=== PATIENT | female | born 1980 | race Caucasian/White ===

== ENCOUNTER 2024-12-24 19:03 | Inpatient (IN) | payer MEDICARE, MEDICAID ==
[~2024-12-24] VITALS: Ht 167.6 cm; Wt 99.8 kg
[2024-12-24 20:09] LABS: BASOPHILS % (AUTO) 0.7 % (0.0-2.0); EOSINOPHILS % (AUTO) 0.2 % (1.0-6.0); HEMATOCRIT 39.8 % (36-46); HEMOGLOBIN 12.8 g/dL (12.0-16.0); LYMPHOCYTES # (AUTO) 1.5 K/uL (1.0-4.8); LYMPHOCYTES % (AUTO) 12.3 % (22.0-44.0); MEAN CORPUSCULAR HEMOGLOBIN 25.4 pg (26.0-34.0); MEAN CORPUSCULAR HGB CONC 32.1 G/dL (31.0-37.0); MEAN CORPUSCULAR VOLUME 79 fL (80-100); MONOCYTES # (AUTO) 0.7 K/uL (0.1-1.0); MONOCYTES % (AUTO) 5.7 % (2.0-9.0); NEUTROPHILS # (AUTO) 9.6 K/uL (1.8-7.7); NEUTROPHILS % (AUTO) 81.1 % (40.0-70.0); PLATELET COUNT (AUTO) 376 K/uL (150-450); RED BLOOD CELL COUNT(AUTO) 5.03 MIL/uL (4.00-5.20); RED CELL DISTRIBUTION WIDTH 15.3 % (11.5-14.5); WHITE BLOOD COUNT (AUTO) 11.9 K/uL (4.5-11.0)
[2024-12-24 20:19] LABS: ANION GAP 9 mmol/L (8-16); CARBON DIOXIDE 24 mmol/L (22-29); CHLORIDE 104 mmol/L (98-107); CREATININE 0.81 mg/dL (0.60-1.30); GLOMERULAR FILTR. RATE CALC > 60 mL/min (>60); GLUCOSE,RANDOM 100 mg/dL (70-110); POTASSIUM 3.7 mmol/L (3.5-5.1); SODIUM SERUM 137 mmol/L (136-145); UREA NITROGEN, BLOOD 13 mg/dL (7-18)
[2024-12-24 20:28] LABS: ALCOHOL, BLOOD (SERUM) < 3 mg/dL (0-10)
[2024-12-24] MEDS: ARIPiprazole 5 MG TABLET PO ONE (20:51)
[2024-12-24] MEDS: LORazepam 2 MG TABLET PO ONE (20:51)
[2024-12-24] MEDS: TOPIRAMATE 25 MG TABLET PO ONE (20:51)
[2024-12-24 21:43] LABS: APPEARANCE,URINE CLEAR (CLEAR); BILIRUBIN,URINE NEGATIVE (NEGATIVE); COLOR,URINE LIGHT YELLOW (YELLOW); GLUCOSE, URINE (UA) NEGATIVE (NEGATIVE); KETONES,URINE NEGATIVE (NEGATIVE); LEUKOCYTE ESTERASE ,URINE NEGATIVE (NEGATIVE); NITRATE,URINE NEGATIVE (NEGATIVE); OCCULT BLOOD,URINE TRACE (NEGATIVE); PH,URINE 5.5 (5.0-8.0); PH,URINE DRUG SCREEN 5.5 (5.0-8.0); PROTEIN,URINE NEGATIVE (NEGATIVE); SPECIFIC GRAVITIY, URINE 1.011 (1.003-1.030); UROBILINOGEN,URINE <=1.0 mg/dL (<=1.0)
[2024-12-24 21:54] LABS: ALCOHOL, URINE DRUG SCREEN NEGATIVE (NEGATIVE); AMPHET/METH SCREEN,URINE NEGATIVE (NEGATIVE); BARBITURATE SCREEN, URINE NEGATIVE (NEGATIVE); BENZODIAZEPINES SCREEN,URINE NEGATIVE (NEGATIVE); CANNABINOID SCREEN,URINE NEGATIVE (NEGATIVE); COCAINE SCREEN,URINE NEGATIVE (NEGATIVE); METHADONE SCREEN, URINE NEGATIVE (NEGATIVE); OPIATE SCREEN,URINE NEGATIVE (NEGATIVE); PHENCYCLIDINE SCREEN,URINE NEGATIVE (NEGATIVE)
[2024-12-24 21:58] LABS: BACTERIA,URINE None Seen /HPF (None Seen); RBC,URINE 0-2 /HPF (0-2); SQUAMOUS EPITHELIAL CELL,UR Rare /LPF (None Seen); WBC,URINE None Seen /HPF (0-5)
[2024-12-24] MEDS ORDERED: HALOPERIDOL 5 MG TABLET PO PRN (23:00)
[2024-12-24 23:03] LABS: COVID AG,FIA SOURCE NASAL SWAB
[2024-12-24 23:58] LABS: SARS-COV2 (COVID) ANTIGEN,FIA Negative (Negative)
[2024-12-25 03:04] VITALS: O2SAT 99
[2024-12-25 04:50] VITALS: BP 114/75; PULSE 85; RESP 16; TEMP 97.9; O2SAT 98
[2024-12-25] MEDS ORDERED: ALBUTEROL SULFATE HFA 90 MCG/PUFF 8 GM INHALER IH PRN (07:30)
[2024-12-25] MEDS ORDERED: DOCUSATE SODIUM 100 MG CAPSULE PO PRN (07:30)
[2024-12-25] MEDS ORDERED: BACITRACIN 28 GM OINTMENT TP PRN (07:30)
[2024-12-25] MEDS ORDERED: PETROLATUM,WHITE 28 GM JELLY TP PRN (07:30)
[2024-12-25] MEDS ORDERED: MAGNESIUM HYDROXIDE SUSPENSION 30 ML UDCUP PO PRN (07:30)
[2024-12-25] MEDS ORDERED: BENZOCAINE/MENTHOL [CEPACOL] LOZENGE PO PRN (07:30)
[2024-12-25] MEDS ORDERED: LOPERAMIDE HCL 2 MG CAPSULE PO PRN (07:30)
[2024-12-25] MEDS ORDERED: CloNIDine HCL 0.1 MG TABLET PO PRN (07:30)
[2024-12-25] MEDS ORDERED: OMEPRAZOLE 20 MG CAPSULE PO PRN (07:30)
[2024-12-25] MEDS ORDERED: ONDANSETRON 4 MG TABLET PO PRN (07:30)
[2024-12-25] MEDS ORDERED: MAG HYDROX/ALUMINUM HYD/SIMETH ES 30 ML SUSPENSION UDCUP PO PRN (07:30)
[2024-12-25 08:22] VITALS: BP 128/75; PULSE 83; RESP 16; TEMP 97.9; O2SAT 98
[2024-12-25] MEDS: LORazepam 2 MG TABLET PO PRN (09:22)
[2024-12-25] MEDS: ACETAMINOPHEN 325 MG TABLET PO PRN (10:39)
[2024-12-25] MEDS: TOPIRAMATE 25 MG TABLET PO SCH (16:37)
[2024-12-25 20:24] VITALS: BP 130/74; PULSE 79; RESP 17; TEMP 97.5; O2SAT 97
[2024-12-26] MEDS: ZOLPIDEM TARTRATE 10 MG TABLET PO PRN (00:26)
[2024-12-26 07:52] LABS: BASOPHILS % (AUTO) 0.4 % (0.0-2.0); EOSINOPHILS % (AUTO) 1.1 % (1.0-6.0); HEMATOCRIT 38.4 % (36-46); HEMOGLOBIN 12.5 g/dL (12.0-16.0); LYMPHOCYTES # (AUTO) 1.5 K/uL (1.0-4.8); LYMPHOCYTES % (AUTO) 19.8 % (22.0-44.0); MEAN CORPUSCULAR HEMOGLOBIN 25.9 pg (26.0-34.0); MEAN CORPUSCULAR HGB CONC 32.5 G/dL (31.0-37.0); MEAN CORPUSCULAR VOLUME 80 fL (80-100); MONOCYTES # (AUTO) 0.4 K/uL (0.1-1.0); MONOCYTES % (AUTO) 5.5 % (2.0-9.0); NEUTROPHILS # (AUTO) 5.5 K/uL (1.8-7.7); NEUTROPHILS % (AUTO) 73.2 % (40.0-70.0); PLATELET COUNT (AUTO) 327 K/uL (150-450); RED BLOOD CELL COUNT(AUTO) 4.82 MIL/uL (4.00-5.20); RED CELL DISTRIBUTION WIDTH 15.2 % (11.5-14.5); WHITE BLOOD COUNT (AUTO) 7.5 K/uL (4.5-11.0)
[2024-12-26 07:59] LABS: HEMOGLOBIN A1C 5.4 % (3.8-5.6)
[2024-12-26] MEDS: ARIPiprazole 10 MG TABLET PO SCH (08:16)
[2024-12-26 08:25] LABS: ALANINE AMINOTRANSFERASE 26 U/L (12-78); ALKALINE PHOSPHATASE 84 U/L (46-116); ANION GAP 10 mmol/L (8-16); ASPARTATE AMINOTRANSFERASE 18 U/L (15-37); BILIRUBIN,TOTAL 0.3 mg/dL (0.1-1.0); CALCIUM, TOTAL 8.9 mg/dL (8.8-10.5); CARBON DIOXIDE 23 mmol/L (22-29); CHLORIDE 104 mmol/L (98-107); CHOL/HDL RATIO 2.7 (3.9-5.7); CHOLESTEROL 178 mg/dL (131-200); CREATININE 0.89 mg/dL (0.60-1.30); GLOMERULAR FILTR. RATE CALC > 60 mL/min (>60); GLUCOSE,RANDOM 105 mg/dL (70-110); HDL CHOLESTEROL 67 mg/dL (40-60); LDL CHOL (CALC.) 99 mg/dL (0-130); POTASSIUM 3.8 mmol/L (3.5-5.1); SODIUM SERUM 137 mmol/L (136-145); THYROID STIMULATING HORMONE 2.48 uIU/mL (0.36-3.74); TOTAL PROTEIN, SERUM 7.2 g/dL (6.4-8.2); TRIGLYCERIDES 60 mg/dL (15-150); UREA NITROGEN, BLOOD 16 mg/dL (7-18)
[2024-12-26 09:46] VITALS: BP 134/81; PULSE 82; RESP 16; TEMP 97.3; O2SAT 97
[2024-12-26] MEDS: IBUPROFEN 600 MG TABLET PO PRN (19:21)
[2024-12-26 20:03] VITALS: BP 132/84; PULSE 90; RESP 17; TEMP 97.9; O2SAT 99
[2024-12-27] MEDS ORDERED: TOPI-257 PO (10:54)
[2024-12-27] MEDS ORDERED: ARIP10TA38 PO (10:55)
[2024-12-27 11:00] VITALS: BP 147/94; PULSE 97; RESP 17; TEMP 97.3; O2SAT 95
== END 2024-12-27 15:20 | disposition home or self-care (01) | DRG 885 ==
LOC: EMS 19:03 → B3A 12-25 00:06
PROVIDERS: ADMIT Psychiatry & Neurology Child & Adolescent Psychiatry; ATTEND Psychiatry & Neurology Child & Adolescent Psychiatry
PROC: GZ52ZZZ Individual Psychotherapy, Cognitive (ICD-10-PCS; principal; 2024-12-25)
PROC: GZ56ZZZ Individual Psychotherapy, Supportive (ICD-10-PCS; 2024-12-25)
DX: F29 Unspecified psychosis not due to a substance or known physiological condition (principal); E66.9 Obesity, unspecified; I10 Essential (primary) hypertension; F10.10 Alcohol abuse, uncomplicated; Z68.35 Body mass index [BMI] 35.0-35.9, adult; Z20.822 Contact with and (suspected) exposure to COVID-19; F41.9 Anxiety disorder, unspecified; G47.00 Insomnia, unspecified; K59.00 Constipation, unspecified; F17.200 Nicotine dependence, unspecified, uncomplicated
CPT/HCPCS: 80048; 80053; 80061; 80307; 81001; 83036; 84443; 84703; 85025; 99285; G0480